=== PATIENT | male | born 1955 | race Caucasian/White ===

== ENCOUNTER 2019-06-21 07:39 | Outpatient (CLI) | payer MEDICARE ==
--- NOTE | 2019-06-21 09:11 | MRI ---
MRI Upper Ext Jt Lt WO Con History: M 25.512 acute pain of left shoulder Comparison: Radiograph May 16, 2019 Findings: Biceps tendon: High-grade intra-articular tendinosis with interstitial type tearing. Mild e xtra articular biceps tenosynovial fluid. Labrum: Circumferential labral tear throughout the substance. Rotator cuff: High-grade partial articular surface supraspinatus tendon avulsion, 60-70% of the entir e supraspinatus tendon. High-grade tendinosis and interstitial tearing of the subscapularis. There is extensive interstitial delamination of the infraspinatus tendon. A full-thickness perforation is f elt to be present the mid fibers supraspinatus tendon sagittal image 13, small perforation, measuring 2-3 mm in transverse dimension. Muscles: Muscle signal and bulk is normal. No atrophy. Bones: Type III acromion narrowing the subacromial space. Normal glenoid version. No acute fracture o r malalignment. Soft tissues: Moderate joint effusion. Mild synovitis of the subscapularis bursa. There also appear t o be a few bodies within the subscapularis bursa Impression: 1. High-grade partial articular surface supraspinatus tendinous avulsion from the footprint, 60-70% t hickness, retracted 2 cm. There is also felt to be a 2 to 3 mm mid fiber supraspinatus tendon full thickness perforation. 2. High-grade intra-articular biceps tendinosis and interstitial tearing. 3. High-grade interstitial tearing undersurface partial tearing of the subscapularis with minimal sub luxation of the biceps tendon. 4. Circumferential labral tear. 5. Moderate joint effusion with subscapularis bursa synovitis and few free bodies. 6. Type III acromion narrowing subacromial space. 7. High-grade chondral fissuring along the superior glenoid.
== END 2019-06-21 07:40 | disposition home or self-care (01) ==
LOC: BICMRI 07:39
PROVIDERS: ATTEND Clinical Nurse Specialist Medical-Surgical
DX: M79.622 Pain in left upper arm (principal); S46.212A Strain of muscle, fascia and tendon of other parts of biceps, left arm, initial encounter; S43.002A Unspecified subluxation of left shoulder joint, initial encounter; S43.402A Unspecified sprain of left shoulder joint, initial encounter; M75.92 Shoulder lesion, unspecified, left shoulder; M25.412 Effusion, left shoulder; M65.812 Other synovitis and tenosynovitis, left shoulder

== ENCOUNTER 2019-09-10 09:11 | Outpatient (CLI) | payer MEDICARE ==
[2019-09-10 10:45] LABS: #Basophils 0.1 thou/uL (0.0-0.2); #Eosinphils 0.2 thou/uL (0.0-0.7); #Lymphocytes 1.8 thou/uL (1.20-3.40); #Monocytes 0.6 thou/uL (0.11-0.59); %Basophils 1.8 % (0.0-1.0); %Eosinophils 4.3 % (0.0-10.0); %Lymphocytes 31.9 % (21.0-51.0); %Monocytes 10.1 % (0.0-10.0); %Neutrophils 51.8 % (42.0-75.0); Hemoglobin 15.3 g/dL (14.0-18.0); Mean Corpuscular HGB CONC 34.6 g/dL (32.0-36.0); Mean Corpuscular Hemoglobin 31.8 pg (27.0-31.0); Mean Corpuscular Volume 91.8 fL (78.0-98.0); Mean Platelet Volume 8.3 fL (7.4-10.4); Platelet Count 189 thou/uL (130-400); RBC Distribution Width 12.4 % (11.5-14.5); White Blood Cell (WBC) Count 5.7 thou/uL (4.8-10.8)
[2019-09-10 10:52] LABS: Prothrombin Time 13.5 SEC (12.0-14.7)
== END 2019-09-10 09:12 | disposition home or self-care (01) ==
LOC: LABBT 09:11
PROVIDERS: ATTEND Orthopaedic Surgery
DX: Z01.812 Encounter for preprocedural laboratory examination (principal); M75.102 Unspecified rotator cuff tear or rupture of left shoulder, not specified as traumatic
CPT/HCPCS: 85025; 85610

== ENCOUNTER 2019-09-12 06:31 | Day surgery (SDC) | payer MEDICARE ==
[2019-09-10 10:14] VITALS: BMI 29.0
[2019-09-12] MEDS ORDERED: Lidocaine 1% w/Epinephrine 1:100K 20 ML VIAL ONE (07:10)
[2019-09-12] MEDS ORDERED: Fentanyl 100 MCG/2 ML VIAL ONE (07:25)
[2019-09-12] MEDS ORDERED: Midazolam HCl 2 mg/2 ml Vial ONE (07:25)
[2019-09-12] MEDS ORDERED: Lidocaine 1% (PF) 30 ML VIAL ONE (07:26)
[2019-09-12] MEDS ORDERED: Ondansetron PF 4 MG/2 ML Vial IVP PRN (07:46)
[2019-09-12] MEDS ORDERED: Zolpidem Tartrate 5 MG TAB PO PRN (07:46)
[2019-09-12] MEDS ORDERED: Ropivacaine 0.2% 550 ML 550 ML NERVE BLCK SCH (07:46)
[2019-09-12] MEDS ORDERED: traMADol HCl 50 MG TAB PO PRN ×2 (07:46)
[2019-09-12] MEDS ORDERED: Fentanyl 100 MCG/2 ML VIAL IV PRN (07:46)
[2019-09-12] MEDS ORDERED: Promethazine HCl 25 MG/ML VIAL IM PRN (07:46)
[2019-09-12] MEDS ORDERED: HYDROcodone/Acetaminophen 10/325 mg Tablet PO PRN ×2 (07:46)
[2019-09-12] MEDS ORDERED: Clindamycin/D5W 600 mg/50 ml Premix Bag ONE (07:52)
[2019-09-12] MEDS ORDERED: PHENYLEPHRINE-NS 100 MCG/ML 10 ML SYRINGE ONE (09:35)
[2019-09-12] MEDS ORDERED: Rocuronium Bromide 10 MG/ML (10ML VIAL) ONE (09:35)
[2019-09-12] MEDS ORDERED: Ropivacaine 0.5% HCl/PF (150 MG/30 ML VIAL) ONE (09:35)
[2019-09-12] MEDS ORDERED: Glycopyrrolate 0.2 MG/ML 5 ML SYRINGE ONE (09:35)
[2019-09-12] MEDS ORDERED: Lidocaine 1% PF 5 ML VIAL ONE (09:35)
[2019-09-12] MEDS ORDERED: Ropivacaine 0.2% HCl/PF (40 MG/20 ML VIAL) ONE (09:35)
[2019-09-12] MEDS ORDERED: Ondansetron PF 4 MG/2 ML Vial ONE (09:35)
[2019-09-12] MEDS ORDERED: PROPOFOL 200 MG/20 ML VIAL ONE (09:35)
--- NOTE | 2019-09-12 12:25 | OP ---
DATE OF PROCEDURE: 09/12/2019 PREOPERATIVE DIAGNOSIS: 1. A high-grade rotator cuff tear, supraspinatus. 2. Biceps tendinosis and tearing. 3. Labral degenerative tear. 4. Loose bodies. POSTOPERATIVE DIAGNOSES: 1. High-grade partial-thickness rotator cuff tear, supraspinatus. 2. Superior labral degenerative fraying with biceps injury. 3. Grade 4 changes of humerus and chondral fissure in glenoid. PROCEDURES PERFORMED: 1. Rotator cuff repair. 2. Biceps tenodesis. 3. Debridement of the humeral surface. [employer] OPERATOR: None. ANESTHESIOLOGIST: Citlaly Ladd MD ANESTHESIA: The patient received general endotracheal intubation with interscalene block. ESTIMATED BLOOD LOSS: 30 mL. TOURNIQUET TIME: None. IMPLANTS: A 5.5 Corkscrew, 4.75 SwiveLock, an 8 mm Bio-Tenodesis screw. ANTIBIOTICS: Ancef 2 g. HISTORY OF PRESENT ILLNESS: Mr. Garland is a pleasant 64-year-old male, who presented to me with left shoulder pain. The patient began in January when moving the lawn and fell. The patient continued to have pain, severe, described as 9/10. Works as a [employer]. He is retired. The patient had MRI evidence of high-grade tear, biceps tendinopathy. No fracture, but early degenerative changes and had no significant changes on x-ray, just some mild narrowing. I discussed with him the risks and benefits of arthroscopic rotator cuff and possible biceps tenodesis, indicated procedures. I discussed the risks and benefits of surgery to include, pain, scar, bleeding, infection, damage to vital structures, decreased range of motion and strength, need for further surgeries, arthritis, and loss of life or limb. The patient understood the risks and benefits and elected to proceed. DESCRIPTION OF PROCEDURE: Time-out was performed, designating the patient's left upper extremity as the operative site based on site, consents, and marking. After time-out, the patient's posterior portal was placed, after placing the beach- chair position, bony prominences were well padded. The patient had a posterior working portal placed and placed anterior working portal inside the joint. Immediately was noted that for a good portion of the entire humerus, had full-thickness cartilage defect. Some loose cartilage flaps were noted, which I debrided with the shaver as well as some synovium. The biceps was into a slight partial tear of the sling of the supraspinatus. The supraspinatus did not have any full-thickness tearing noted. We tenotomized the biceps with a cautery, looked at the undersurface of the cuff, which showed some partial tearing, but no full-thickness component was noted. We debrided off the humerus loose fragments as well as some of the free edges of the humerus cartilage. We completed our intra-articular diagnostic scope, moved subacromially. You could see a soft spot within the cuff, which he fell into, where the high-grade tear was noted, moved to the biceps, which I found and made sure and unroofed it, cauterized and found and pulled the biceps out. I then fell into cuff tear, placed a 5.5 corkscrew anchor in the middle after I had cleaned out the footprint and placed 4 sutures and then placed a lateral row to help to compress it down. I cut the sutures. I moved back to the biceps, drilled and placed an 8 mm Bio-Tenodesis screw. Had good firm and fixation down to the entire tendon and the hole. He was closed with nylon after pictures were taken. The patient will begin passive range of motion immediately for concern for stiffness postoperatively. Job ID: [id number] [facility]
== END 2019-09-12 12:33 | disposition home or self-care (01) ==
LOC: SDC 06:31
PROVIDERS: ATTEND Orthopaedic Surgery
PROC: 0LQ24ZZ Repair Left Shoulder Tendon, Percutaneous Endoscopic Approach (ICD-10-PCS; principal; 2019-09-12)
PROC: 0LS24ZZ Reposition Left Shoulder Tendon, Percutaneous Endoscopic Approach (ICD-10-PCS; 2019-09-12)
PROC: 0RHK44Z Insertion of Internal Fixation Device into Left Shoulder Joint, Percutaneous Endoscopic Approach (ICD-10-PCS; 2019-09-12)
DX: S46.012A Strain of muscle(s) and tendon(s) of the rotator cuff of left shoulder, initial encounter (principal); M75.22 Bicipital tendinitis, left shoulder; S46.112A Strain of muscle, fascia and tendon of long head of biceps, left arm, initial encounter; S43.402A Unspecified sprain of left shoulder joint, initial encounter; M24.012 Loose body in left shoulder; Z79.1 Long term (current) use of non-steroidal anti-inflammatories (NSAID); Z88.0 Allergy status to penicillin; Z98.890 Other specified postprocedural states; W19.XXXA Unspecified fall, initial encounter; Y93.H2 Activity, gardening and landscaping
CPT/HCPCS: 29827; 29828; 97139; A4306; C1713 ×3; J2001; J2250; J2405; J2704; J2795; J3010; J3490

== ENCOUNTER 2022-10-25 09:43 | Outpatient (CLI) | payer MEDICARE ==
[2022-10-25 10:43] LABS: #Basophils 0.1 10x3/uL (0.0-0.2); #Eosinphils 0.3 10x3/uL (0.0-0.5); #Monocytes 0.5 10x3/uL (0.0-1.1); #Neutrophils 3.3 10x3/uL (1.5-8.4); %Eosinophils 4.2 % (0.0-6.0); %Lymphocytes 30.3 % (18.0-47.0); %Monocytes 8.1 % (0.0-10.0); %Neutrophils 56.2 % (40.0-75.0); Mean Corpuscular HGB CONC 34.1 g/dL (32.0-36.0); Mean Corpuscular Hemoglobin 30.6 pg (27.0-33.0); Mean Corpuscular Volume 89.8 fl (81.2-95.1); Mean Platelet Volume 10.5 fl (7.4-10.4); Platelet Count 235 10x3/uL (150-450); RBC Distribution Width 13.8 % (11.5-14.5); White Blood Cell (WBC) Count 5.9 10x3/uL (3.5-10.5)
[2022-10-25 10:59] LABS: Anion Gap 14 mmol/L (10-20); BUN (Urea Nitrogen) 13 mg/dL (8.4-25.7); Calc. Creatinine Clearance 0 mL/min (70-130); Calcium 9.5 mg/dL (7.8-10.44); Carbon Dioxide 25 mmol/L (23-31); Chloride 106 mmol/L (98-107); Estimated GFR 95; Glucose 94 mg/dL (80-115); Potassium 4.8 mmol/L (3.5-5.1); Sodium 140 mmol/L (136-145)
== END 2022-10-25 09:44 | disposition home or self-care (01) ==
LOC: LABBT 09:43
PROVIDERS: ATTEND Surgery
DX: Z01.818 Encounter for other preprocedural examination (principal); K43.9 Ventral hernia without obstruction or gangrene
CPT/HCPCS: 80048; 85025; 93005; 93010

== ENCOUNTER 2022-11-01 06:37 | Day surgery (SDC) | payer MEDICARE ==
[2022-10-28 12:39] VITALS: BMI 29.0
[2022-11-01] MEDS ORDERED: Bupivacaine/Epinephrine 0.25% 30 ML VIAL ONE (08:54)
[2022-11-01] MEDS ORDERED: fentaNYL PF 100 MCG/2 ML SYRINGE ONE (09:41)
[2022-11-01] MEDS ORDERED: Levofloxacin 500 mg/D5W 100 ml Premix Bag ONE (09:54)
[2022-11-01] MEDS ORDERED: PROPOFOL 200 MG/20 ML VIAL ONE (10:08)
[2022-11-01] MEDS ORDERED: Rocuronium Bromide 10 MG/ML (10ML VIAL) ONE (10:08)
[2022-11-01] MEDS ORDERED: Ondansetron PF 4 MG/2 ML Vial ONE (10:08)
[2022-11-01] MEDS ORDERED: Lidocaine 1% PF 5 ML VIAL ONE (10:08)
[2022-11-01] MEDS ORDERED: Glycopyrrolate 0.2 MG/ML 5 ML SYRINGE ONE (10:08)
[2022-11-01] MEDS ORDERED: Dexamethasone 20 MG/5 ML VIAL ONE (10:08)
[2022-11-01] MEDS ORDERED: NEOSTIGMINE 3 MG/3 ML SYR 3 MG/3 ML SYRINGE ONE (10:08)
[2022-11-01] MEDS ORDERED: FENTANYL 50 MCG/ML 1 ML VIAL ONE ×2 (11:35→11:40)
[2022-11-01] MEDS ORDERED: HYDROcodone/Acetaminophen 5/325 mg Tablet ONE (12:50)
== END 2022-11-01 13:25 | disposition home or self-care (01) ==
LOC: SDC 06:37
PROVIDERS: ATTEND Surgery
PROC: 0WUF4JZ Supplement Abdominal Wall with Synthetic Substitute, Percutaneous Endoscopic Approach (ICD-10-PCS; principal; 2022-11-01)
PROC: 8E0W4CZ Robotic Assisted Procedure of Trunk Region, Percutaneous Endoscopic Approach (ICD-10-PCS; 2022-11-01)
DX: K43.9 Ventral hernia without obstruction or gangrene (principal); G89.29 Other chronic pain; M62.08 Separation of muscle (nontraumatic), other site; Z88.0 Allergy status to penicillin
CPT/HCPCS: 49593; C1781; J3010; J1100; J1956; J2405; J2704

== ENCOUNTER 2025-04-04 14:37 | Outpatient (CLI) | payer MEDICARE | END 2025-04-04 14:38 | disposition home or self-care (01) | LOC: SCSMRI 14:37 | PROVIDERS: ATTEND Family Medicine | DX: G30.0 Alzheimer's disease with early onset (principal); F02.80 Dementia in other diseases classified elsewhere, unspecified severity, without behavioral disturbance, psychotic disturbance, mood disturbance, and anxiety; I67.82 Cerebral ischemia; R90.82 White matter disease, unspecified; G31.9 Degenerative disease of nervous system, unspecified; I73.9 Peripheral vascular disease, unspecified | CPT/HCPCS: 70551 ==